=== PATIENT | female | born 1945 | race Caucasian/White ===

== ENCOUNTER 2018-05-04 11:30 | Day surgery (SDC) | payer BC, MEDICARE ==
[~2018-05-04] VITALS: Ht 172.7 cm; Wt 90.9 kg
[2018-05-04 11:36] LABS: HEMATOCRIT 41.6 % (36.0-48.0); HEMOGLOBIN 14.1 g/dL (12-16); MCH 29.5 pg (26.0-34.0); MCHC 33.9 g/dL (31.0-37.0); MEAN PLATELET VOLUME 9.6 fL (7.4-10.4); RBC 4.78 10x6/uL (4.00-5.40); RDW 14.6 % (11.5-14.5); WBC 8.7 10x3/uL (4.8-10.8)
[2018-05-04 12:29] VITALS: BP 122/76; Ht 172.7 cm; Wt 90.9 kg
--- NOTE | 2018-05-04 17:08 | NUR ---
1655 UP TO BR VOIDS AND PASSING FLATUS. 1700 XRAY HERE FOR PORT XRAY
--- NOTE | 2018-05-04 18:03 | NUR ---
1755 XRAY RESULTS OBTAINED, NO ACUTE FINDINGS. FL DIET SERVED. PT. STATES DOES NOT LIKE CHICKEN SOUP, REQUESTED COKE, COLA SERVED. PT. ATTEMMPTING TO REACH SOMEONE TO COME AND DRIVE HER HOME. STATES SHE DROVE HERSELF HERE. I REMINDED HER SHE CANNOT DRIVE HERSELF HOME BECAUSE OF SEDATION. 1800 IV DC'D WITH CATH INTACT.
--- NOTE | 2018-05-04 19:18 | NUR ---
1905 RELEASED IN WITH BROTHER CAMPER ASSEMBLER OF HER TRUCK.
--- NOTE | 2018-05-05 16:06 | OP ---
PATIENT NAME: ROSALIND SCHNEIDER MEDICAL RECORD: [id number] :41 LOCATION:D.OPS ADMISSION DATE: SURGEON: GER LI MD DATE OF OPERATION: 05/04/2018 PRINCIPAL DIAGNOSES: Large complex ascending colon polyp. POSTOPERATIVE DIAGNOSES: Large complex ascending colon polyp. PROCEDURES: 1. Total colonoscopy to the cecum. 2. Endoscopic mucosal resection and polypectomy. 3. Placement of 1 endoscopic clip for hemostasis. 4. Argon plasma coagulation therapy to remaining polypoid tissue after endoscopic mucosal resection. 5. Submucosal epinephrine injection. SURGEON: Ger Li MD VINEYARD WORKER: None. BLOOD LOSS: Minimal. ANESTHESIA: IV sedation. COMPLICATIONS: None. ENDOSCOPIC COURSE: The patient was conveyed to the endoscopy suite electively on 05/04/2018. IV sedation was induced by the anesthesia staff. The patient was placed in the Edwards position. A digital rectal examination was performed. A colonoscope was inserted through the anus. It was easily advanced to the cecum. The prep was adequate. I slowly withdrew the endoscope. I noted the polyp, which was behind a fold and was difficult to get to. At the base of the polyp, I performed a submucosal injection of Eleview through a sclerotherapy needle. This caused the polyp to raise to some degree. This was a suboptimal positioning of the polyp, however, for endoscopic mucosal resection. I then advanced the endoscope. I was able to retroflex in the ascending colon. With retroflexion, I was able to see the polyp easier. I advanced the sclerotherapy needle. I performed a submucosal injection of Eleview to raise the polyp and then a submucosal injection of epinephrine for post-procedural hemostasis. While still in retroflexion, I advanced an endoscopic snare. I then was able to place a snare around the base of the polyp and perform a snare polypectomy utilizing the coagulation setting and then the cut setting. Some remaining polypoid tissue was ablated with the argon plasma lumite injector. There was pulsatile bleeding and this was controlled with the application of 1 endoscopic clip. I then grasped the polyp within an endoscopic retrieval net. It was withdrawn out through the anus. I am going to obtain a post-procedure chest x-ray to rule out a OPERATIVE REPORT [id number] ROSALIND SCHNEIDER pneumoperitoneum, I will see the patient in my office in 2-3 weeks. TRANSINT:[id number] Voice Confirmation ID: [id number] DOCUMENT ID: [id number] GER LI MD at 1606 CC: TARA DURAN MD and TAZ RED MD [id number] DICTATION DATE: 05/04/18 163 METEOROLOGY TEACHER: 05/04/18 2158 [facility] [place] 05/04/18 [place] [id number] [place] [id number]
--- NOTE | 2018-05-05 16:06 | HP ---
PATIENT: ROSALIND SCHNEIDER MEDICAL RECORD: [id number] ACCOUNT: [id number] LOCATION:DJAYDE : 41 ADMISSION DATE: 05/04/18 PCP: TAZ RED MD HISTORY AND PHYSICAL EXAMINATION CHIEF COMPLAINT: Colon polyps. HISTORY: The patient is referred with complex colon polyps. She is to undergo colonoscopy, likely with argon plasma coagulation therapy or endoscopic mucosal resection. SOCIAL HISTORY: Nonsmoker. PAST MEDICAL AND SURGICAL HISTORY: None. HOME MEDICINES: None. ALLERGIES: No known drug allergies. PHYSICAL EXAMINATION: GENERAL: The patient does not appear acutely ill. She does not appear chronically ill. VITAL SIGNS: Reviewed. EARS: External ears appear normal. EYES: Extraocular movements are intact. NECK: Trachea is midline. CHEST: No intercostal retractions. PULMONARY: Nonlabored. No stridor. IMPRESSION: Complex colon polyps. PLAN: Colonoscopy, polypectomy with argon plasma composition stone applicator versus endoscopic mucosal resection. TRANSINT:[id number] Voice Confirmation ID: [id number] DOCUMENT ID: [id number] GER LI MD at 1606 CC: TARA DURAN MD and TAZ RED MD [id number] DICTATION DATE: 05/04/18 1542 SANDER MACHINE: 05/04/18 1851 [facility] 05/04/18 [place] [id number] [place] [address]
== END 2018-05-04 19:05 | disposition home or self-care (01) ==
LOC: D.OPS 11:30
PROVIDERS: Anesthesiology
DX: K63.5 Polyp of colon (principal)

== ENCOUNTER 2019-09-20 06:34 | Day surgery (SDC) | payer BC, MEDICARE ==
[~2019-09-20] VITALS: Ht 174 cm; Wt 90.9 kg
--- NOTE | ~2019-09-20 | HP ---
PATIENT: ROSALIND SCHNEIDER MEDICAL RECORD: [id number] ACCOUNT: [id number] LOCATION:DLupeVY : 43 ADMISSION DATE: 09/20/19 PCP: TAZ RED MD HISTORY AND PHYSICAL EXAMINATION CHIEF COMPLAINT: History of a large villous adenoma of the ascending colon. The patient has had no rectal bleeding. No abdominal pain. HISTORY OF PRESENT ILLNESS: The patient was referred by Dr. Arcos. During her colonoscopy on 05/04/2018, she was found to have a large complex ascending colon polyp. She underwent endoscopic mucosal resection, placement of one clip for hemostasis, argon plasma coagulation therapy. PAST MEDICAL AND SURGICAL HISTORY: History of colon polyp. HOME MEDICINES: None. ALLERGIES: No known drug allergies. REVIEW OF SYSTEMS: No history of angina or myocardial infarction. SOCIAL HISTORY: Nonsmoker. PHYSICAL EXAMINATION: GENERAL: The patient does not appear acutely ill. She does not appear chronically ill. VITAL SIGNS: Reviewed. EARS: External ears appear normal. EYES: Extraocular movements are intact. NECK: Trachea is midline. CHEST: No intercostal retractions. PULMONARY: Nonlabored, no stridor. IMPRESSION: History of ascending colon polyp, which was a complex polyp. PLAN: Colonoscopy with polypectomy. TRANSINT:[id number] Voice Confirmation ID: [id number] DOCUMENT ID: [id number] GER LI MD CC: TARA ARCOS MD and TAZ RED MD [id number] DICTATION DATE: 09/20/19 0939 CRUISE COUNSELOR: 09/20/19 1244 [facility] 09/20/19 [place] [id number] [place] [id number]
--- NOTE | ~2019-09-20 | OP ---
PATIENT NAME: ROSALIND SCHNEIDER MEDICAL RECORD: [id number] :41 LOCATION:D.OPS ADMISSION DATE: SURGEON: GER LI MD DATE OF OPERATION: 09/20/2019 PREOPERATIVE DIAGNOSIS: History of an ascending colon polyp, which was complex. POSTOPERATIVE DIAGNOSES: 1. History of an ascending colon polyp, which was complex with some regrowth of the polyp. 2. A sessile polyp, which is a 9 mm polyp in the rectum at 10 cm. SURGEON: Ger Li MD PROCEDURES: 1. Total colonoscopy to cecum. 2. Snare polypectomy of the ascending colon polyp. 3. Hot biopsy forceps polypectomy of the rectal polyp. The risks, possible complications, alternatives to the procedure were explained to the patient. She elects to proceed. ENDOSCOPIC COURSE: The patient was conveyed to endoscopy suite electively on 09/20/2019. IV sedation was induced by the anesthesia staff. The patient was placed in the Edwards position. A digital rectal examination was performed. A colonoscope was inserted through the anus. It was easily advanced to the cecum. The prep was adequate. I slowly withdrew the endoscope. A combination of normal imaging and narrow imaging was utilized. A polyp was noted in the ascending colon. I advanced an endoscopic snare. I was able to grasp the base of the polyp. Utilizing the coagulation setting, I was able to snare off the polyp. The polyp was then sucked up into a polyp trap. Some residual polypoid tissue was ablated with the argon plasma head sawyer with the right colon setting in the forced mode. I slowly withdrew the endoscope. The pullback was greater than a 13-minute pullback. A polyp was noted in the rectum. It was removed in its entirety utilizing the hot biopsy forceps polypectomy technique. After the polypectomy, a retroflexed view was obtained in the rectum. I then unretroflexed the scope and removed it under direct vision. I will see the patient in my office in 3 weeks. I will plan for her next colonoscopy to take place in 3 years. TRANSINT:[id number] Voice Confirmation ID: [id number] DOCUMENT ID: [id number] GER LI MD CC: TARA DURAN MD and TAZ RED MD [id number] DICTATION DATE: 09/20/19 1020 ARTIST BLACKSMITH: 09/20/[address] [facility] 09/20/19 [facility] [address] [place] [id number]
[2019-09-20 07:05] LABS: HEMATOCRIT 42.4 % (36.0-48.0); HEMOGLOBIN 13.4 g/dL (12-16); MCH 28.7 pg (26.0-34.0); MCHC 31.6 g/dL (31.0-37.0); MCV 90.8 fL (80.0-100.0); MEAN PLATELET VOLUME 9.7 fL (7.4-10.4); RBC 4.67 10x6/uL (4.00-5.40); RDW 14.7 % (11.5-14.5); WBC 8.7 10x3/uL (4.8-10.8)
[2019-09-20 07:19] LABS: ANION GAP 15.2 mmol/L (8-16); CREATININE - SERUM 1.1 mg/dL (0.6-1.3); POTASSIUM - SERUM 4.2 mmol/L (3.5-5.1)
[2019-09-20 07:51] VITALS: BP 102/65; Ht 174 cm; Wt 90.9 kg
--- NOTE | 2019-09-20 11:18 | NUR ---
1100 IV DC'ED WITH CATH INTACT. DRESSED WITH ASSISTANCE. Jody HARVEY R.N. 1110 PT AWAKE & ALERT. GIVEN DISCHARGE INFORMATION INCLUDING: RX: FLAGYL 500MG, MED REC, RTC APPT., SHEET LISTING NSAIDS TO AVOID FOR 14 DAYS, [facility] POST ENDOSCOPY D/C INSTRUCTIONS, & HIGH FIBER DIET INFORMATION. PT VOICED UNDERSTANDING. TO PRIVATE CAR PER WHEELCHAIR BY STAFF. HOME WITH NIECE, ALLIE SCHNEIDER. Jody HARVEY R.N.
== END 2019-09-20 11:10 | disposition home or self-care (01) ==
LOC: D.OPS 06:34
PROVIDERS: Anesthesiology; ATTEND Surgery
DX: Z86.010 Personal history of colon polyps (principal); K63.5 Polyp of colon